=== PATIENT | male | born 1960 | race Caucasian/White ===

== ENCOUNTER 2016-09-02 08:55 | Day surgery (SDC) | payer OTHER ==
[~2016-09-02] VITALS: Ht 170.2 cm; Wt 77.9 kg
[2016-09-02 10:30] VITALS: Ht 170.2 cm; Wt 77.9 kg
[2016-09-02 10:56] VITALS: BP 179/93; PULSE 53; RESP 18
[2016-09-02] MEDS ORDERED: htn med PO (11:05)
[2016-09-02] MEDS ORDERED: MIDAZOLAM 1 MG/ML 2 ML INJ ONE ×2 (11:41)
[2016-09-02] MEDS ORDERED: FENTAnyl 50 MCG/ML VIAL ONE (11:41)
[2016-09-02 11:57] VITALS: BP 146/93; PULSE 64
--- NOTE | 2016-09-16 12:58 | GILP ---
DATE OF PROCEDURE: 09/02/2016 SURGEON: Gisella Ruby MD PROCEDURE PERFORMED: Colonoscopy and biopsy. PREOPERATIVE DIAGNOSIS: Positive occult blood in stool. POSTOPERATIVE DIAGNOSES: 1. Colonoscopy all the way to the cecum. 2. Patient had 3 small colon polyps and they were removed using the biopsy forceps. 3. Diverticulosis of the colon. 4. Internal hemorrhoids. INDICATION: The patient is a 56-year-old male patient who noted to have positive occult blood in the stool. The patient was scheduled for colonoscopy for further evaluation. The procedure and possible complications were well-explained to the patient, and the patient understood and consented to the procedure. DESCRIPTION OF PROCEDURE: The colonoscope was carefully introduced into the rectum and under direct vision it was advanced all the way to the cecum. Findings: The patient was noticed to have 3 small polyps, and they were removed using the biopsy forceps. He was noted to have diverticulosis of the colon and internal hemorrhoids. The patient tolerated the procedure very well and there was no complication from the procedure. the end of the procedure the patient was awake, with stable vital signs and was discharged to the care of the family. IMPRESSION: 1. Please see postoperative diagnoses. PLAN: 1. Await histopathology report. 2. Next screening colonoscopy will be in 5 years. Dictated By: MD SHAYY Guadarrama/pineda/sonia /Document#: [id number]
== END 2016-09-02 12:30 | disposition home or self-care (01) ==
LOC: GIL 08:55
PROVIDERS: ATTEND Internal Medicine Gastroenterology
DX: K92.1 Melena (principal); K63.5 Polyp of colon; K57.90 Diverticulosis of intestine, part unspecified, without perforation or abscess without bleeding; K64.8 Other hemorrhoids
CPT/HCPCS: 45380; 88305; J2250; J3010; Z7610